=== PATIENT | female | born 1975 | race Caucasian/White ===

== ENCOUNTER 2022-12-20 07:33 | Outpatient (CLI) | payer OTHER, SELFPAY ==
[2022-12-20 14:43] LABS: Total Protein Urine 13 mg/dL
[2022-12-20 14:46] LABS: Creatinine Urine 15.4 mg/dL
[2022-12-20 14:58] LABS: Creatinine Urine 15.4 mg/dL
[2022-12-20 15:04] LABS: Microalbumin Creatinine Ratio 60 mg/g (0-30); Microalbumin Urine < 1 mg/dL
== END 2022-12-20 07:34 | disposition home or self-care (01) ==
PROVIDERS: PCP Physician Assistant Medical; Visit Provider Family Medicine
DX: Z00.00 Encounter for general adult medical examination without abnormal findings (principal); E11.9 Type 2 diabetes mellitus without complications; H10.9 Unspecified conjunctivitis; E78.5 Hyperlipidemia, unspecified; R73.03 Prediabetes; R79.89 Other specified abnormal findings of blood chemistry; Z11.59 Encounter for screening for other viral diseases; Z13.6 Encounter for screening for cardiovascular disorders
CPT/HCPCS: 80053; 80061; 82043; 82570; 82607; 84156; 86803

== ENCOUNTER 2023-10-13 11:31 | Outpatient (CLI) | payer OTHER, SELFPAY | END 2023-10-13 11:32 | disposition home or self-care (01) | PROVIDERS: PCP Family Medicine; Visit Provider Family Medicine | DX: E11.39 Type 2 diabetes mellitus with other diabetic ophthalmic complication (principal); R79.89 Other specified abnormal findings of blood chemistry; E78.5 Hyperlipidemia, unspecified; Z79.4 Long term (current) use of insulin | CPT/HCPCS: 80053; 80061; 82043; 82570 ==

== ENCOUNTER 2024-11-08 13:57 | Outpatient (CLI) | payer OTHER, SELFPAY | END 2024-11-08 13:58 | disposition home or self-care (01) | PROVIDERS: PCP Family Medicine; Visit Provider Family Medicine | DX: E04.9 Nontoxic goiter, unspecified (principal); E78.5 Hyperlipidemia, unspecified; E79.89 Other specified disorders of purine and pyrimidine metabolism; R41.9 Unspecified symptoms and signs involving cognitive functions and awareness; E11.39 Type 2 diabetes mellitus with other diabetic ophthalmic complication; G62.9 Polyneuropathy, unspecified; Z13.1 Encounter for screening for diabetes mellitus; Z13.6 Encounter for screening for cardiovascular disorders; Z79.4 Long term (current) use of insulin | CPT/HCPCS: 80053; 80061; 82043; 82570; 82607; 84443 ==